=== PATIENT | female | born 1965 | race Caucasian/White ===

== ENCOUNTER 2019-09-12 20:17 | Inpatient (IN) | payer MEDICAID ==
[~2019-09-12] VITALS: Ht 160 cm; Wt 64.9 kg
[2019-09-12 21:33] LABS: CHLORIDE 107 mEq/L (98-107)
[2019-09-12 21:36] LABS: HEMATOCRIT. 32.8 % (36.0-48.0); MEAN CORPUSCULAR HEMOGLOBIN 26.9 pg (28.0-32.0); MEAN CORPUSCULAR VOLUME 80.4 fL (81.0-99.0); MEAN PLATELET VOLUME 7.7 fl (7.4-10.4); PLATELET 218 x1000/uL (130-400); RED BLOOD CELL COUNT 4.08 mill/uL (4.2-5.4); RED CELL DISTRIBUTION WIDTH 14.2 % (11.6-14.6)
[2019-09-12 21:37] LABS: ETHANOL BLOOD < 10 mg/dL
[2019-09-12 22:14] LABS: PLATELET ESTIMATE NORMAL
[2019-09-12 22:32] LABS: CLARITY URINE CLEAR (CLEAR); COLOR URINE YELLOW (YELLOW); KETONES URINE NEGATIVE (NEGATIVE); LEUKOCYTE ESTERASE URINE NEGATIVE (NEGATIVE); NITRITE URINE NEGATIVE (NEGATIVE); OCCULT BLOOD URINE NEGATIVE (NEGATIVE); PROTEIN URINE TRACE (NEGATIVE); SPECIFIC GRAVITY URINE 1.025 (1.005-1.030)
[2019-09-12 23:01] LABS: *BARBITURATES SCREEN URINE NEGATIVE (NEGATIVE)
[2019-09-12 23:02] LABS: *AMPHETAMINES SCREEN URINE NEGATIVE (NEGATIVE); *BENZODIAZEPINES SCREEN URINE NEGATIVE (NEGATIVE); *COCAINE SCREEN URINE NEGATIVE (NEGATIVE); METHADONE URINE SCREEN NEGATIVE (NEGATIVE); OPIATES URINE SCREEN NEGATIVE (NEGATIVE); PHENCYCLIDINE URINE SCREEN NEGATIVE (NEGATIVE)
[2019-09-12 23:03] LABS: CANNABINOID URINE SCREEN NEGATIVE (NEGATIVE)
[2019-09-13 00:11] LABS: CREATINE KINASE 101 IU/L (26-192)
[2019-09-13] MEDS ORDERED: LEVETIRACETAM 1000MG/100ML 100 ML IV ONE (02:00)
[2019-09-13] MEDS ORDERED: DEXAMETHASONE 4MG/ML 1ML VIAL IV ONE (02:00)
[2019-09-13] MEDS ORDERED: GADOBENATE DIMEGLUMINE 529 MG/ML 10ML IV ONE (08:59)
[2019-09-13] MEDS ORDERED: ACETAMINOPHEN 325MG TABLET PO PRN (12:30)
[2019-09-13] MEDS ORDERED: ONDANSETRON HCL 4MG/2ML INJ IV PRN (12:30)
[2019-09-13] MEDS ORDERED: LEVETIRACETAM 500MG PREMIX 100 ML IV NR (16:13)
[2019-09-13] MEDS: DEXT 5%/LACTATED RINGERS 1,000 ML IV SCH (16:38)
[2019-09-13 17:00] VITALS: BP 119/77
[2019-09-13 17:06] LABS: HEPATITIS B SURFACE ANTIGEN NEGATIVE
[2019-09-13 17:30] VITALS: BP 119/77
[2019-09-13 17:35] LABS: HEPATITIS A AB IGM NEGATIVE (NEGATIVE)
[2019-09-13] MEDS: DEXAMETHASONE 4MG/ML 1ML VIAL IV SCH ×2 (18:47→23:46)
[2019-09-13 19:17] VITALS: BP 106/67
[2019-09-13 20:00] VITALS: BP 106/71
[2019-09-13 22:00] VITALS: BP 111/72
[2019-09-14] VITALS (12 sets, daily range): BP systolic 93–139; BP diastolic 67–87
[2019-09-14] MEDS ORDERED: LEVETIRACETAM 500 MG in SODIUM CHLORIDE 0.9% 100 ML IV SCH (06:00)
[2019-09-14] MEDS: DEXAMETHASONE 4MG/ML 1ML VIAL IV SCH ×4 (06:28→23:57)
[2019-09-14] MEDS: LEVETIRACETAM 500MG PREMIX 100 ML IV SCH ×2 (06:29→17:45)
[2019-09-14 06:30] LABS: HEMATOCRIT. 33.6 % (36.0-48.0); HEMOGLOBIN. 11.5 g/dL (12.0-16.0); MEAN CORPUSCULAR HEMOGLOBIN 27.3 pg (28.0-32.0); MEAN CORPUSCULAR VOLUME 79.7 fL (81.0-99.0); MEAN PLATELET VOLUME 7.8 fl (7.4-10.4); PLATELET 213 x1000/uL (130-400); RED BLOOD CELL COUNT 4.22 mill/uL (4.2-5.4); RED CELL DISTRIBUTION WIDTH 14.9 % (11.6-14.6)
[2019-09-14 06:47] LABS: CHLORIDE 110 mEq/L (98-107)
[2019-09-14 12:29] LABS: PLATELET ESTIMATE NORMAL
[2019-09-14] MEDS: DEXT 5%/LACTATED RINGERS 1,000 ML IV SCH (12:35)
[2019-09-15] VITALS (12 sets, daily range): BP systolic 96–158; BP diastolic 48–96
[2019-09-15] MEDS: DEXT 5%/LACTATED RINGERS 1,000 ML IV SCH ×2 (03:53→22:28)
[2019-09-15] MEDS: DEXAMETHASONE 4MG/ML 1ML VIAL IV SCH ×4 (05:00→23:51)
[2019-09-15] MEDS: LEVETIRACETAM 500MG PREMIX 100 ML IV SCH ×2 (05:05→17:39)
[2019-09-15 06:12] LABS: HEMATOCRIT. 33.4 % (36.0-48.0); HEMOGLOBIN. 11.4 g/dL (12.0-16.0); MEAN CORPUSCULAR VOLUME 79.3 fL (81.0-99.0); MEAN PLATELET VOLUME 7.9 fl (7.4-10.4); PLATELET 235 x1000/uL (130-400); RED BLOOD CELL COUNT 4.21 mill/uL (4.2-5.4); RED CELL DISTRIBUTION WIDTH 14.8 % (11.6-14.6)
[2019-09-15 07:00] LABS: CHLORIDE 110 mEq/L (98-107)
[2019-09-15 16:05] LABS: NUCLEATED RED BLOOD CELLS 1 /100 WBC; PLATELET ESTIMATE NORMAL
[2019-09-16] VITALS (12 sets, daily range): BP systolic 109–142; BP diastolic 48–81
[2019-09-16] MEDS: DEXAMETHASONE 4MG/ML 1ML VIAL IV SCH ×3 (04:51→18:30)
[2019-09-16] MEDS: LEVETIRACETAM 500MG PREMIX 100 ML IV SCH ×2 (04:53→18:48)
[2019-09-16 07:01] LABS: CHLORIDE 107 mEq/L (98-107)
[2019-09-16 07:06] LABS: HEMATOCRIT. 31.7 % (36.0-48.0); HEMOGLOBIN. 11.2 g/dL (12.0-16.0); MEAN CORPUSCULAR HEMOGLOBIN 27.9 pg (28.0-32.0); MEAN CORPUSCULAR VOLUME 78.6 fL (81.0-99.0); PLATELET 208 x1000/uL (130-400); RED BLOOD CELL COUNT 4.03 mill/uL (4.2-5.4); RED CELL DISTRIBUTION WIDTH 14.5 % (11.6-14.6)
[2019-09-16 10:47] LABS: PLATELET ESTIMATE NORMAL
[2019-09-16] MEDS ORDERED: POTASSIUM CHLORIDE 20MEQ TABLET SR PO SCH (11:30)
[2019-09-16] MEDS: DEXT 5%/LACTATED RINGERS 1,000 ML IV SCH (13:42)
[2019-09-16] MEDS ORDERED: POTASSIUM CHLORIDE INJ 40 MEQ in DEXT 5% WATER 250 ML IV SCH (15:00)
[2019-09-17] VITALS (35 sets, daily range): BP systolic 50–145; BP diastolic 20–103
[2019-09-17] MEDS: DEXT 5%/LACTATED RINGERS 1,000 ML IV SCH ×2 (06:39→17:30)
[2019-09-17] MEDS: LEVETIRACETAM 500MG PREMIX 100 ML IV SCH ×2 (06:39→18:09)
[2019-09-17 10:04] LABS: BG BASE EXCESS -1.4 mmol/L (-2.0-2.0); BG CARBOXYHEMOGLOBIN 0.3 % (0.5-1.5); BG DEOXYHEMOGLOBIN 13.6 % (0.0-5.0); BG FRACTION INSPIRED OXYGEN 40; BG HCO3 ACT 24.9 mmol/L (22.0-26.0); BG METHEMOGLOBIN 0.4 % (0.0-1.5); BG OXYGEN SATURATION 86.3 % (92.0-98.5); BG OXYHEMOGLOBIN 85.7 % (94.0-97.0); BG PCO2 48.3 mmHg (35.0-45.0); BG PO2 57.1 mmHg (75.0-100.0); BG SAMPLE SITE RIGHT BRACHIAL; BG TOTAL HEMOGLOBIN 13.3 g/dL (12.0-18.0); BG VENT MODE NASAL CANNULA
[2019-09-17] MEDS: IPRATROPIUM/ALBUTEROL 0.5-3(2.5)MG/3ML NEB HHN SCH ×3 (10:29→20:32)
[2019-09-17 10:31] LABS: BASOPHILS % 0.2 % (0.0-2.0); EOSINOPHILS % 0.1 % (0.0-5.0); HEMATOCRIT. 37.3 % (36.0-48.0); HEMOGLOBIN. 12.7 g/dL (12.0-16.0); MEAN CORPUSCULAR HEMOGLOBIN 27.1 pg (28.0-32.0); MEAN CORPUSCULAR VOLUME 79.5 fL (81.0-99.0); MEAN PLATELET VOLUME 7.6 fl (7.4-10.4); MONOCYTES % 4.1 % (2.0-8.0); NEUTROPHILS % 68.6 % (40.0-76.0); PLATELET 189 x1000/uL (130-400); RED BLOOD CELL COUNT 4.69 mill/uL (4.2-5.4)
[2019-09-17 10:42] LABS: CHLORIDE 103 mEq/L (98-107)
[2019-09-17] MEDS ORDERED: IPRATROPIUM/ALBUTEROL 0.5-3(2.5)MG/3ML NEB HHN SCH (12:00)
[2019-09-17 12:41] LABS: BG BASE EXCESS -2.8 mmol/L (-2.0-2.0); BG BILEVEL POS AIRWAY PRESSURE 15/5; BG CARBOXYHEMOGLOBIN 0.3 % (0.5-1.5); BG DEOXYHEMOGLOBIN 5.6 % (0.0-5.0); BG FRACTION INSPIRED OXYGEN 90; BG HCO3 ACT 23.6 mmol/L (22.0-26.0); BG METHEMOGLOBIN 0.4 % (0.0-1.5); BG OXYGEN SATURATION 94.4 % (92.0-98.5); BG OXYHEMOGLOBIN 93.7 % (94.0-97.0); BG PCO2 47.3 mmHg (35.0-45.0); BG PH 7.316 (7.350-7.450); BG PO2 80.9 mmHg (75.0-100.0); BG SAMPLE SITE RIGHT BRACHIAL; BG TOTAL HEMOGLOBIN 12.8 g/dL (12.0-18.0); BG VENT MODE MASK - BIPAP
[2019-09-17] MEDS: CEFEPIME 1,000 MG in DEXTROSE 5% WATER 50 ML IV SCH (13:22)
[2019-09-17] MEDS: METRONIDAZOLE 500 MG PREMIX 100 ML IV SCH ×2 (13:22→20:36)
[2019-09-17] MEDS ORDERED: SODIUM CHLORIDE 0.9% 1,000 ML IV ONE (16:00)
[2019-09-17] MEDS ORDERED: ALBUMIN HUMAN 12.5GM/50ML (25%) IV NR (17:00)
[2019-09-17] MEDS ORDERED: ETOMIDATE 2MG/ML 10ML VIAL IV ONE (17:15)
[2019-09-17] MEDS ORDERED: SUCCINYLCHOLINE CHLORIDE 200MG/10ML IV ONE (17:15)
[2019-09-17] MEDS: PHENYLEPHRINE 10 MG in DEXT 5% WATER 249 ML IV PRN (17:32)
[2019-09-17 20:49] LABS: BG BASE EXCESS -2.8 mmol/L (-2.0-2.0); BG CARBOXYHEMOGLOBIN 0.3 % (0.5-1.5); BG DEOXYHEMOGLOBIN 1.4 % (0.0-5.0); BG FRACTION INSPIRED OXYGEN 100; BG HCO3 ACT 21.7 mmol/L (22.0-26.0); BG METHEMOGLOBIN 0.3 % (0.0-1.5); BG OXYGEN SATURATION 98.6 % (92.0-98.5); BG PCO2 36.8 mmHg (35.0-45.0); BG PH 7.388 (7.350-7.450); BG SAMPLE SITE RIGHT RADIAL; BG TIDAL VOLUME(mL) 500 mL; BG TOTAL HEMOGLOBIN 12.1 g/dL (12.0-18.0); BG VENT MODE VENT - A/C; BG VENT RATE 14 set
[2019-09-17] MEDS ORDERED: KCL 20MEQ/100ML PREMIX 100 ML IV NR (23:00)
[2019-09-18] VITALS (104 sets, daily range): BP systolic 31–130; BP diastolic 22–93
[2019-09-18] MEDS: PHENYLEPHRINE 10 MG in DEXT 5% WATER 249 ML IV PRN ×2 (00:09→05:21)
[2019-09-18] MEDS: IPRATROPIUM/ALBUTEROL 0.5-3(2.5)MG/3ML NEB HHN SCH ×6 (00:29→20:11)
[2019-09-18] MEDS: METRONIDAZOLE 500 MG PREMIX 100 ML IV SCH ×3 (04:01→20:59)
[2019-09-18 04:28] LABS: BASOPHILS % 0.1 % (0.0-2.0); EOSINOPHILS % 1.2 % (0.0-5.0); HEMATOCRIT. 35.9 % (36.0-48.0); HEMOGLOBIN. 12.2 g/dL (12.0-16.0); LYMPHOCYTES % 23.3 % (20.0-50.0); MEAN CORPUSCULAR VOLUME 79.3 fL (81.0-99.0); MEAN PLATELET VOLUME 7.5 fl (7.4-10.4); MONOCYTES % 6.3 % (2.0-8.0); NEUTROPHILS % 69.1 % (40.0-76.0); PLATELET 112 x1000/uL (130-400); RED BLOOD CELL COUNT 4.53 mill/uL (4.2-5.4); RED CELL DISTRIBUTION WIDTH 14.5 % (11.6-14.6)
[2019-09-18] MEDS: LEVETIRACETAM 500MG PREMIX 100 ML IV SCH ×2 (05:21→19:29)
[2019-09-18] MEDS: DEXT 5%/LACTATED RINGERS 1,000 ML IV SCH (05:52)
[2019-09-18] MEDS: CEFEPIME 1,000 MG in DEXTROSE 5% WATER 50 ML IV SCH (08:24)
[2019-09-18] MEDS: PHENYLEPHRINE 40 MG in DEXT 5% WATER 246 ML IV PRN ×3 (08:26→16:43)
[2019-09-18 08:28] LABS: BG BASE EXCESS -5.6 mmol/L (-2.0-2.0); BG CARBOXYHEMOGLOBIN 0.4 % (0.5-1.5); BG DEOXYHEMOGLOBIN 7.1 % (0.0-5.0); BG FRACTION INSPIRED OXYGEN 70; BG HCO3 ACT 19.1 mmol/L (22.0-26.0); BG OXYGEN SATURATION 92.9 % (92.0-98.5); BG OXYHEMOGLOBIN 92.5 % (94.0-97.0); BG PH 7.355 (7.350-7.450); BG PO2 69.9 mmHg (75.0-100.0); BG SAMPLE SITE RIGHT BRACHIAL; BG TIDAL VOLUME(mL) 500 mL; BG TOTAL HEMOGLOBIN 13.6 g/dL (12.0-18.0); BG VENT MODE VENT - A/C; BG VENT RATE 14 set
[2019-09-18] MEDS ORDERED: POTASSIUM CHLORIDE INJ 40 MEQ in DEXT 5% WATER 250 ML IV ONE (09:00)
[2019-09-18] MEDS ORDERED: DEXTROSE 5% WATER 1,000 ML IV SCH (09:15)
[2019-09-18] MEDS ORDERED: POTASSIUM CHLORIDE 20MEQ TABLET SR PO NR (09:15)
[2019-09-18] MEDS ORDERED: POTASSIUM CHLORIDE 20MEQ/PACKET PO NR (10:00)
[2019-09-18] MEDS ORDERED: LIDOCAINE HCL 1% 20ML VIAL (Pyxis) INJ ONE (10:32)
[2019-09-18] MEDS: PANTOPRAZOLE SODIUM 40 MG/VIAL IV SCH (11:17)
[2019-09-18] MEDS: VASOPRESSIN 10 UNIT in SODIUM CHLORIDE 0.9% 99.5 ML IV PRN ×3 (11:44→23:25)
[2019-09-18 14:56] LABS: BG BASE EXCESS -11.2 mmol/L (-2.0-2.0); BG CARBOXYHEMOGLOBIN 0.2 % (0.5-1.5); BG DEOXYHEMOGLOBIN 10.5 % (0.0-5.0); BG FRACTION INSPIRED OXYGEN 80; BG HCO3 ACT 16.3 mmol/L (22.0-26.0); BG OXYGEN SATURATION 89.5 % (92.0-98.5); BG OXYHEMOGLOBIN 89.3 % (94.0-97.0); BG PCO2 42.2 mmHg (35.0-45.0); BG PH 7.205 (7.350-7.450); BG PO2 68.6 mmHg (75.0-100.0); BG SAMPLE SITE RIGHT BRACHIAL; BG TIDAL VOLUME(mL) 500 mL; BG TOTAL HEMOGLOBIN 14.2 g/dL (12.0-18.0); BG VENT MODE VENT - A/C; BG VENT RATE 14 set
[2019-09-18] MEDS ORDERED: NOREPINEPHRINE 32 MG in DEXT 5% WATER 468 ML IV PRN (17:00)
[2019-09-18] MEDS ORDERED: SODIUM BICARBONATE 8.4% 1 MEQ/ML 50ML SYR IV NR (20:15)
[2019-09-18] MEDS: PHENYLEPHRINE 80 MG in DEXT 5% WATER 492 ML IV PRN (20:41)
[2019-09-18] MEDS ORDERED: SODIUM BICARBONATE 100 MEQ in DEXTROSE 5% WATER 1,000 ML IV SCH (21:30)
[2019-09-19] VITALS (106 sets, daily range): BP systolic 70–166; BP diastolic 50–118
[2019-09-19] MEDS: IPRATROPIUM/ALBUTEROL 0.5-3(2.5)MG/3ML NEB HHN SCH ×7 (00:05→20:51)
[2019-09-19] MEDS: VASOPRESSIN 10 UNIT in SODIUM CHLORIDE 0.9% 99.5 ML IV PRN ×5 (03:40→22:56)
[2019-09-19] MEDS: METRONIDAZOLE 500 MG PREMIX 100 ML IV SCH ×3 (03:44→20:08)
[2019-09-19] MEDS: PHENYLEPHRINE 80 MG in DEXT 5% WATER 492 ML IV PRN ×3 (04:28→19:53)
[2019-09-19 05:37] LABS: HEMATOCRIT. 37.6 % (36.0-48.0); HEMOGLOBIN. 12.7 g/dL (12.0-16.0); MEAN CORPUSCULAR HEMOGLOBIN 27.1 pg (28.0-32.0); MEAN CORPUSCULAR VOLUME 80.1 fL (81.0-99.0); MEAN PLATELET VOLUME 8.8 fl (7.4-10.4); PLATELET 107 x1000/uL (130-400); RED BLOOD CELL COUNT 4.69 mill/uL (4.2-5.4); RED CELL DISTRIBUTION WIDTH 15.4 % (11.6-14.6)
[2019-09-19] MEDS: LEVETIRACETAM 500MG PREMIX 100 ML IV SCH ×2 (06:41→17:39)
[2019-09-19] MEDS ORDERED: POTASSIUM CHLORIDE INJ 60 MEQ in DEXT 5% WATER 500 ML IV ONE (07:30)
[2019-09-19 07:35] LABS: NUCLEATED RED BLOOD CELLS 3 /100 WBC; PLATELET ESTIMATE DECREASED
[2019-09-19] MEDS: PANTOPRAZOLE SODIUM 40 MG/VIAL IV SCH (08:02)
[2019-09-19] MEDS: CEFEPIME 1,000 MG in DEXTROSE 5% WATER 50 ML IV SCH (08:02)
[2019-09-19 09:07] LABS: BG BASE EXCESS -1.2 mmol/L (-2.0-2.0); BG CARBOXYHEMOGLOBIN 0.3 % (0.5-1.5); BG DEOXYHEMOGLOBIN 12.5 % (0.0-5.0); BG FRACTION INSPIRED OXYGEN 100; BG HCO3 ACT 21.5 mmol/L (22.0-26.0); BG METHEMOGLOBIN 0.1 % (0.0-1.5); BG OXYGEN SATURATION 87.4 % (92.0-98.5); BG OXYHEMOGLOBIN 87.1 % (94.0-97.0); BG PCO2 29.6 mmHg (35.0-45.0); BG PH 7.478 (7.350-7.450); BG PO2 49.4 mmHg (75.0-100.0); BG SAMPLE SITE RIGHT RADIAL; BG TIDAL VOLUME(mL) 500 mL; BG TOTAL HEMOGLOBIN 12.1 g/dL (12.0-18.0); BG VENT MODE VENT - A/C; BG VENT RATE 22 set
[2019-09-19 11:34] LABS: BG BASE EXCESS -0.3 mmol/L (-2.0-2.0); BG CARBOXYHEMOGLOBIN 0.3 % (0.5-1.5); BG DEOXYHEMOGLOBIN 3.4 % (0.0-5.0); BG FRACTION INSPIRED OXYGEN 100; BG HCO3 ACT 22.4 mmol/L (22.0-26.0); BG METHEMOGLOBIN 0.1 % (0.0-1.5); BG OXYGEN SATURATION 96.6 % (92.0-98.5); BG OXYHEMOGLOBIN 96.2 % (94.0-97.0); BG PCO2 30.7 mmHg (35.0-45.0); BG PH 7.481 (7.350-7.450); BG PO2 82.5 mmHg (75.0-100.0); BG SAMPLE SITE RIGHT RADIAL; BG TIDAL VOLUME(mL) 500 mL; BG TOTAL HEMOGLOBIN 12.4 g/dL (12.0-18.0); BG VENT MODE VENT - A/C; BG VENT RATE 22 set
[2019-09-19] MEDS: SODIUM CHLORIDE 0.45% 1,000 ML IV SCH (12:08)
[2019-09-19] MEDS ORDERED: POTASSIUM CHLORIDE INJ 40 MEQ in DEXT 5% WATER 250 ML IV ONE (14:00)
[2019-09-20] VITALS (102 sets, daily range): BP systolic 45–180; BP diastolic 35–128
[2019-09-20] MEDS: IPRATROPIUM/ALBUTEROL 0.5-3(2.5)MG/3ML NEB HHN SCH ×6 (00:14→20:52)
[2019-09-20] MEDS: SODIUM CHLORIDE 0.45% 1,000 ML IV SCH ×2 (00:57→12:25)
[2019-09-20] MEDS: PHENYLEPHRINE 80 MG in DEXT 5% WATER 492 ML IV PRN ×2 (04:02→12:26)
[2019-09-20 05:38] LABS: BASOPHILS % 0.1 % (0.0-2.0); EOSINOPHILS % 2.2 % (0.0-5.0); HEMATOCRIT. 34.4 % (36.0-48.0); HEMOGLOBIN. 11.7 g/dL (12.0-16.0); LYMPHOCYTES % 17.2 % (20.0-50.0); MEAN CORPUSCULAR VOLUME 79.6 fL (81.0-99.0); MEAN PLATELET VOLUME 8.6 fl (7.4-10.4); MONOCYTES % 4.1 % (2.0-8.0); NEUTROPHILS % 76.4 % (40.0-76.0); PLATELET 109 x1000/uL (130-400); RED BLOOD CELL COUNT 4.33 mill/uL (4.2-5.4); RED CELL DISTRIBUTION WIDTH 15.3 % (11.6-14.6)
[2019-09-20 05:50] LABS: CHLORIDE 97 mEq/L (98-107)
[2019-09-20] MEDS: VASOPRESSIN 10 UNIT in SODIUM CHLORIDE 0.9% 99.5 ML IV PRN ×2 (08:49→16:55)
[2019-09-20] MEDS: CEFEPIME 1,000 MG in DEXTROSE 5% WATER 50 ML IV SCH (08:53)
[2019-09-20] MEDS: PANTOPRAZOLE SODIUM 40 MG/VIAL IV SCH (08:53)
[2019-09-20] MEDS: METRONIDAZOLE 500 MG PREMIX 100 ML IV SCH ×2 (12:29→20:00)
[2019-09-20] MEDS: LEVETIRACETAM 500MG PREMIX 100 ML IV SCH (18:10)
[2019-09-21 19:09] LABS: HISTOPLASMA ABS QT DID Negative (Neg:<1:1)
== END 2019-09-20 22:15 | disposition expired | DRG 720 ==
LOC: ER 20:17 → EDBD 09-13 10:24 → 6WST 09-13 10:24 → ENRESERV 09-13 16:03 → 5EST 09-13 18:50 → MICUNO 09-17 16:51
PROVIDERS: ADMIT Internal Medicine; ATTEND Internal Medicine
PROC: 5A1945Z Respiratory Ventilation, 24-96 Consecutive Hours (ICD-10-PCS; principal; 2019-09-17)
PROC: 0BH17EZ Insertion of Endotracheal Airway into Trachea, Via Natural or Artificial Opening (ICD-10-PCS; 2019-09-17)
PROC: 5A09357 Assistance with Respiratory Ventilation, Less than 24 Consecutive Hours, Continuous Positive Airway Pressure (ICD-10-PCS; 2019-09-17)
PROC: 02HV33Z Insertion of Infusion Device into Superior Vena Cava, Percutaneous Approach (ICD-10-PCS; 2019-09-18)
PROC: B548ZZA Ultrasonography of Superior Vena Cava, Guidance (ICD-10-PCS; 2019-09-18)
DX: A41.9 Sepsis, unspecified organism (principal); G93.6 Cerebral edema; J96.00 Acute respiratory failure, unspecified whether with hypoxia or hypercapnia; J69.0 Pneumonitis due to inhalation of food and vomit; G93.40 Encephalopathy, unspecified; R65.21 Severe sepsis with septic shock; R16.1 Splenomegaly, not elsewhere classified; E87.2 Acidosis; C79.31 Secondary malignant neoplasm of brain; E44.1 Mild protein-calorie malnutrition; D64.9 Anemia, unspecified; D72.819 Decreased white blood cell count, unspecified; R74.0 Nonspecific elevation of levels of transaminase and lactic acid dehydrogenase [LDH]; R23.3 Spontaneous ecchymoses; E87.6 Hypokalemia; R47.01 Aphasia; Z66 Do not resuscitate; Z87.891 Personal history of nicotine dependence; Z68.25 Body mass index [BMI] 25.0-25.9, adult
CPT/HCPCS: 36415; 36600; 70553; 71045; 71250; 74176; 76700; 76937; 78610; 80048; 80053; 80305; 80307; 80320; 80329; 81003; 82140; 82375; 82550; 82805; 82962; 83036; 83735; 85025; 86480; 86698; 86705; 86709; 86803; 87340; 92610; 93005; 93970; 94002; 94003; 94640; 94660; 97162; 97165; 99291; A9512; A9577; C1725; C9113; J0330; J0692; J1100; J1953; J2370; J3480; J3490; J7050; J7060; J7070; P9047; G0480